=== PATIENT | female | born 1970 | race Caucasian/White ===

== ENCOUNTER 2021-05-02 13:12 | Outpatient (CLI) | payer OTHER, SELFPAY ==
--- NOTE | ~2021-05-02 | MM_ITS ---
EXAMINATION: MM screening [facility] w jan[facility] HISTORY: Screening TECHNIQUE: Craniocaudal and mediolateral oblique 3-D tomosynthesis images were obtained and synthetic 2-D images were generated. CAD analysis was submitted and interpreted. COMPARISON: No prior mammogram is available for comparison at this institution. BREAST PARENCHYMAL COMPOSITION: There are scattered areas of fibroglandular density. FINDINGS: There is no evidence of suspicious mass, calcification, or architectural distortion to sugg est malignancy in either breast. There has been no suspicious interval change. IMPRESSION: 1. No mammographic evidence of malignancy. 2. Recommend routine screening mammography in one year. BI-RADS Category 1: Negative Reviewed, dictated and finalized at location A.
== END 2021-05-02 13:13 | disposition home or self-care (01) ==
LOC: CHSIMG 13:16
PROVIDERS: PCP Family Medicine; Visit Provider Physician Assistant
DX: Z12.31 Encounter for screening mammogram for malignant neoplasm of breast (principal)
CPT/HCPCS: 77063; 77067

== ENCOUNTER 2021-08-21 08:42 | Outpatient (CLI) | payer OTHER, SELFPAY ==
--- NOTE | ~2021-08-21 | US_ITS ---
EXAMINATION: US pelvic complete w TV DATE: 08/21/2021 09:07 INDICATION: Menstrual pain. Bleeding. Comparison:No prior studies for comparison. TECHNIQUE: Multiple transabdominal and endovaginal sonographic images of the pelvis performed. FINDINGS: The uterus measures 11.3 x 4.8 x 5.9 cm. There is a nabothian cyst. The endometrial complex measures 4 mm. The right ovary measures 2.8 x 1.2 x 1.8 cm and the left ovary measures 2.5 x 1.6 x 1.6 cm. There ar e small follicles in each ovary. Normal doppler signal in both ovaries. There is no free fluid in the pelvis. There are no abnormal masses seen on either side. IMPRESSION: 1. Mildly enlarged uterus. Otherwise, unremarkable pelvic ultrasound. Reviewed, dictated and finalized at location A.
== END 2021-08-21 08:43 | disposition home or self-care (01) ==
LOC: CHSIMG 08:43
PROVIDERS: PCP Family Medicine; Visit Provider Physician Assistant
DX: N94.6 Dysmenorrhea, unspecified (principal)
CPT/HCPCS: 76830; 76856

== ENCOUNTER 2022-06-03 12:56 | Outpatient (CLI) | payer OTHER, SELFPAY ==
--- NOTE | ~2022-06-03 | MM_ITS ---
EXAMINATION: MM screening [facility] w janis HISTORY: Screening TECHNIQUE: Craniocaudal and mediolateral oblique 3-D tomosynthesis images were obtained and synthetic 2-D images were generated. CAD analysis was submitted and interpreted. COMPARISON: 05/02/2021 BREAST PARENCHYMAL COMPOSITION: The breasts are heterogeneously dense, which may obscure small masses . FINDINGS: There is no evidence of suspicious mass, calcification, or architectural distortion to sugg est malignancy in either breast. There has been no suspicious interval change. IMPRESSION: 1. No mammographic evidence of malignancy. 2. Recommend routine screening mammography in one year. BI-RADS Category 1: Negative Reviewed, dictated and finalized at location A.
== END 2022-06-03 12:57 | disposition home or self-care (01) ==
LOC: CHSIMG 12:58
PROVIDERS: PCP Physician Assistant; Visit Provider Physician Assistant
DX: Z12.31 Encounter for screening mammogram for malignant neoplasm of breast (principal)
CPT/HCPCS: 77063; 77067

== ENCOUNTER 2022-10-03 09:31 | Outpatient (CLI) | payer OTHER, SELFPAY ==
--- NOTE | ~2022-10-03 | XR_ITS ---
EXAMINATION: XR foot LT min 3V DATE: 10/03/2022 10:04 INDICATION: Left great toe pain. TECHNIQUE: Dorsoplantar, two oblique and lateral views of the left foot were obtained. COMPARISON: None. FINDINGS: Alignment is normal. No fracture. Severe osteoarthritis at the first metatarsophalangeal joint. Moder ate osteoarthritis at the reticulation of the navicular and lateral cuneiform. Mild osteoarthritis at the calcaneocuboid, multiple tarsometatarsal, metatarsophalangeal and interphalangeal joints. Soft t issues are unremarkable. IMPRESSION: 1. 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 Reviewed, dictated and finalized at location B. IMPRESSION: 1. Polyarticular osteoarthritis in the left foot, severe at the first metatarso phalangeal joint.
== END 2022-10-03 09:32 | disposition home or self-care (01) ==
PROVIDERS: PCP Physician Assistant; Visit Provider Physician Assistant
DX: M79.675 Pain in left toe(s) (principal); M15.9 Polyosteoarthritis, unspecified
CPT/HCPCS: 73630

== ENCOUNTER 2023-06-19 14:15 | Outpatient (CLI) | payer OTHER, SELFPAY ==
--- NOTE | ~2023-06-19 | MM_ITS ---
EXAMINATION: MM screening [facility] BI w janis HISTORY: Screening TECHNIQUE: Craniocaudal and mediolateral oblique 3-D tomosynthesis images were obtained and synthetic 2-D images were generated. CAD analysis was submitted and interpreted. COMPARISON: Comparison to multiple prior studies sequentially, with oldest reviewed study dated 01/2021. BREAST PARENCHYMAL COMPOSITION: There are scattered areas of fibroglandular density. FINDINGS: There is no evidence of suspicious mass, calcification, or architectural distortion to sugg est malignancy in either breast. There has been no suspicious interval change. IMPRESSION: 1. No mammographic evidence of malignancy. 2. Recommend routine screening mammography in one year. BI-RADS Category 1: Negative Reviewed, dictated and finalized at location A.
== END 2023-06-19 14:16 | disposition home or self-care (01) ==
LOC: CHSIMG 14:16
PROVIDERS: PCP Physician Assistant; Visit Provider Physician Assistant
DX: Z12.31 Encounter for screening mammogram for malignant neoplasm of breast (principal)
CPT/HCPCS: 77063; 77067

== ENCOUNTER 2024-06-21 12:10 | Outpatient (CLI) | payer OTHER, SELFPAY ==
--- NOTE | ~2024-06-21 | MM_ITS ---
EXAMINATION: MM screening [facility] w jan[facility] HISTORY: Screening TECHNIQUE: Craniocaudal and mediolateral oblique 3-D tomosynthesis images were obtained and synthetic 2-D images were generated. CAD analysis was submitted and interpreted. COMPARISON: Comparison to multiple prior studies sequentially, with oldest reviewed study dated 01/2021. BREAST PARENCHYMAL COMPOSITION: Dense: The breasts are heterogeneously dense, which may obscure small masses FINDINGS: There is no evidence of suspicious mass, calcification, or architectural distortion to sugg est malignancy in either breast. There has been no suspicious interval change. IMPRESSION: 1. No mammographic evidence of malignancy. 2. Recommend routine screening mammography in one year. BI-RADS Category 1: Negative Reviewed, dictated and finalized at location B.
== END 2024-06-21 12:11 | disposition home or self-care (01) ==
PROVIDERS: PCP Physician Assistant; Visit Provider Physician Assistant
DX: Z12.31 Encounter for screening mammogram for malignant neoplasm of breast (principal)
CPT/HCPCS: 77063; 77067

== ENCOUNTER 2025-06-23 13:17 | Outpatient (CLI) | payer OTHER, SELFPAY ==
--- NOTE | ~2025-06-23 | MM_ITS ---
EXAMINATION: MM screening urszula BI w janis HISTORY: Screening TECHNIQUE: Craniocaudal and mediolateral oblique 3-D tomosynthesis images were obtained and synthetic 2-D images were generated. CAD analysis was submitted and interpreted. COMPARISON: Comparison to multiple prior studies sequentially, with oldest reviewed study dated 01/2021. BREAST PARENCHYMAL COMPOSITION: Dense: The breasts are heterogeneously dense, which may obscure small masses FINDINGS: There is no evidence of suspicious mass, calcification, or architectural distortion to sugg est malignancy in either breast. There has been no suspicious interval change. IMPRESSION: 1. No mammographic evidence of malignancy. 2. Recommend routine screening mammography in one year. BI-RADS Category 1: Negative Reviewed, dictated and finalized at location A.
--- OUTSIDE RECORDS SUMMARY | 2025-06-23 13:21 | XMS_ITS | Clinical Summary ---
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 06/17/2019 Active oxybutynin 5 MG tablet Take 1 tablet (5 mg total) by mouth daily. 06/18/2019 Active Multiple Vitamins-Mineral s (MULTIVITAMIN ADULT OR) Take 1 tablet by mouth daily. Active meloxicam (MOBIC) 15 MG tablet 05/17/2024 Active metFORMIN (GLUCOPHAGE) 1000 MG tablet 05/17/2024 Acti ve omeprazole (PRILOSEC) 40 MG capsule 05/17/2024 Active amitriptyline (ELAVIL) 25 MG tablet Take 1 tablet (25 mg total) by mouth. 05/17/2024 Active levothyroxine (SYNTHROID) 88 MCG tablet Take 1 tablet (88 mcg total) by mouth every morning. 05/17/2024 Active Active Problems Problem Noted Date Diagnosed Date Umbilical hernia without obstruction or gangrene 06/08/2024 Chondrocalcinosis of right knee 07/14/2019 Family History Medical History Relation Comments Diabetes Father Seizures Father Stroke Father Relation Status Comments Father Alive Mother Alive Social History Tobacco Use Types Packs/Day Years Used Date Smoking Tobacco: Never Smokeless Tobacco: Never Tobacco Cessation:Counseling Given: Not Answered Alcohol Use Standard Drinks/Week Comments No 0 (1 standard drink = 0.6 oz pur e alcohol) AUDIT-C Answer Date Recorded Frequency of Alcohol Consumption Never 07/14/2019 Average Number of Drinks Not on file 019 Frequency of Binge Drinking Not on file 06/30 Comments No Sex and Gender Information Value Date Recorded Sex Assigned at Not on file Legal Sex Female 10:26 PM CDT Gender Identity Not on file Sexual Orientation Not on file Last Filed Vital Signs Vital Sign Reading Time Taken Comments Blood Pressure 113/72 06/29/2024 9:17 AM CDT Pulse 82 06/29/2024 9:17 AM CDT Temperature 35.8 C (96.4 F) 06/16/2024 10:25 AM CDT Respiratory Rate 14 06/29/2024 9:17 AM CDT Oxygen Saturation 99% 06/16/2024 10:25 AM CDT Inhaled Oxygen Concentration - - Weight 55.2 kg (121 lb 9.6 oz) 06/29/2024 9:17 A M CDT Height 160 cm (5' 3) 06/29/2024 9:17 AM CDT Body Mass Index 21.54 06/29/2024 9:17 AM CDT Plan of Treatment Health Maintenance Due Date Last Done Comments Cervical Cancer Screening Pap Smear (Age 30 to 64) Every 3 Years 1972 Colorectal Cancer Screening Colonoscopy (10 Years) 1972 Annual Physical 1975 Hepatitis C 1990 Hepatitis B Vaccines (1 of 3 - 19+ 3-dose series) 1991 Cervical Cancer Screening Pap with HPV Testing (Age 30 to 64) Every 5 Years 2002 Cervical Cancer Screening with HPV 2002 Mammogram Screening 2012 Pneumococcal Vaccine: 50+ Years (1 of 1 - PCV) 2022 Zoster Vaccines (1 of 2) 2022 COVID-19 Vaccine (4 - season) 2024 06/12/2022, 01/11/2022, 12/14/2021 PHQ-2 (Physician [place]) 11/30/2024 DTaP, Tdap and Td Vaccines (6 - Td or Tdap) 08/05/2033 08/05/2023, 03/30/1980, 09/21/1974, Additional history exists Meningococcal B Vaccine Aged Out No l onger eligible based on patient's age to complete this topic Meningococcal Vaccine Aged Out No deepa frandy eligible based on patient's age to complete this topic RSV Immunizations Under 20 Months Aged Out No longer eligible based on patient's age to complete this topic Insurance [facility] Care Teams Cutting Machine Tender Helper Relationship Specialty Start Date End Date Jamari Holguin MD [address] [place] [phone] PCP - General FAMILY PRACTICE 07/07/19
--- OUTSIDE RECORDS SUMMARY | 2025-06-23 13:22 | XMS_ITS | Data Portability ---
Author Organization [facility], [address] [facility] ([place]) Address [address] [place] [address] Care Team Providers Care Genetic Counselor Name Role Phone MAGGIE ABARCA Primary Care Provider YVES VILLELA Referring Provider Assessment Encounter Date Assessment Date Assessment LastModified by Organization Details LastModified Time 09/02/2024 09/02/2024 HISTORY OF PRESENT ILLNESS: The patient presents for evaluation of right elbow pain after an injury that happened on 08/18/24 at work. She was lifting boxes when she hit her funny bone . Since then she has had pain all throughout the elbow joint. She does have associated numbness of the thumb but no other numbness and tingling. Her pain is 5/10 in intensity. She has been resting and taking Aleve. Her pain is worsened by bending her arm and lifting heavy objects. The pain is sharp and aching. It does radiate down her arm at times. She is right hand dominant. She has never had a prior injury or surgery to the right elbow. She took oral steroids on 08/24. That helped her symptoms minimally but then they returned once the steroids were discontinued. PHYSICAL EXAMINATION: CONST: No acute distress. HENT: Oral mucosa pink and moist. RESP: Breathing appears normal. No use of accessory muscles. PSYCH: Stable mood and affect. NEURO: No speech difficulty. MSK: 2+ palpable radial pulse. Sensation intact to upper extremity dermatomes. Motor intact to radial, medial, ulnar distributions. Upper extremity on the right: The patient has pain with extension of the right elbow. She lacks about 5 degrees of extension compared to the left. She does have pain with varus and valgus stress testing of the elbow but no laxity. She has slight pain with flexion. No pain with pronation and supination. Mild tenderness to palpation near the radial head. No edema or ecchymosis. No tenderness to palpable at the tip of the olecranon. Carpal tunnel compression test is positive but Tinel s is negative. Full active range of motion of the shoulder and wrist. DIAGNOSTIC DATA: Imaging of the right elbow was obtained and demonstrates no definite fracture. Maintained joint space. These images were independently reviewed. Please see radiologist's report for full details. ASSESSMENT: Right elbow injury. PLAN: The patient is having right elbow pain after an injury but there are no significant findings on the x-ray. I would like to give her a sling to wear as needed. She was given a work note recommending a 5 pound weight restriction to the right upper extremity and may need to wear her sling. She will follow up in clinic in 3 weeks. Hopefully at that time we can release to her work. She also an EMG scheduled with Dr. Perrin at some point but another provider. The patient verbalized an understanding. All questions were answered. [email or web address] Not available 09/02/2024 14:45:56 09/20/2024 09/20/2024 History: Linda returns for followup of her right elbow. She saw Venus at the last visit. She injured it on 08/18/2024. 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 She says she just bumped it. She says that it did not hurt too bad initially but over the next 24 to 48 hours it did increase in pain. She cannot straighten her elbow out all the way. It is still swollen. The pain is a 4/10. Physical Examination: She has about 5 to 155 degrees range of motion of the right elbow compared to 3 degrees hypertension, 155 degrees of flexion of the left elbow. There is pain along the medial epicondyle, as well as the ulnar collateral ligament of the right elbow, negative left elbow. Positive cubital tunnel and Tinel's test on the right elbow, negative left elbow. X-rays of the right elbow were independently reviewed from [facility] and show no significant abnormalities. Assessment: 1. Right elbow injury status post work injury, possible ulnar collateral ligament strain versus intraarticular derangement. 2. Possible right cubital tunnel. Plan: Clinical findings were discussed with the patient. I recommended conservative management of the right elbow with physical therapy. I also recommended continued 5 pound working lifting restriction. I also recommended an MRI of the right elbow. She will follow up after the MRI of the right elbow, as well as the nerve test. [email or web address] Not available 09/20/2024 13:40:55 10/11/2024 10/11/2024 History: Linda returns for follow-up. She injured her right elbow on August 17. 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 She bumped it. It did not hurt too badly for the first 24 to 48 hours, but the pain did increase. She has been doing physical therapy. She has noted some improvement. She did have a nerve test with Dr. Perrin recently, which she was told was normal. She feels like her range of motion has improved from the last visit. Physical Examination: She has 3 degrees of hyperextension and 155 degrees of flexion of the bilateral elbows, which is much improved. She had no pain along the medial epicondyle. She had some mild lateral epicondyle tenderness of the right elbow. Negative cubital tunnel Tinel s test on the right elbow today. X-rays of the right elbow, MRI, and EMG were independently reviewed from [facility] and show no significant abnormalities besides a contusion of the right elbow as well as some mild tennis elbow as well as some mild arthritis of the medial trochlea. Assessment: 1. Right elbow contusion status post work-related injury. 2. Right mild tennis elbow. Plan: Clinical findings were discussed with the patient. She can return to work full duty without restrictions. She can continue her physical therapy. She will follow up with us again in approximately 2 months for maximum medical improvement. [email or web address] Not available 10/11/2024 16:43:43 Plan of Treatment Reminders Order Date Submit Date Provider Last Modified By Organization Details Last Modified Time Details Appointments None record ed. Lab None record ed. Referral None record ed. Procedures None record ed. Surgeries None record ed. Imaging None record ed. Medication Orders None record ed. Patient TargetsNo targets recorded. Patient InstructionsNo instructions recorded. Reason for Referral None Reported. Results Created Date Observation Date Name Description Value Unit Range Abnormal Flag Note LastModifiedBy Organization Detail LastModifiedTime 10/10/20 24 elect romyo gram + nerve condu ction study No observ ation record ed. BARCODE Not Available 2023 13:27:13 01/06/20 25 XR, elbow , 3 or more view No observ ation record ed. odeets Not Available 2024 09:29:45 01/10/20 25 XR, elbow , 3 or more view No observ ation record ed. [email or web address] [facility] (Radiology) [address], [place], [address], 01/10/2025 10:44:37 01/31/20 25 09/29/2024 MRI, elbow , w/o contr ast No observ ation record ed. [email or web address] [facility] (Radiology) [address] , [place], [address], 01/30/2025 16:33:18 02/07/20 25 09/28/2024 MRI, elbow , w/o contr ast No observ ation record ed. GOVIND [facility] (Radiology) [address] , [place], [address], 02/06/2025 13:13:15 Result Notes None recorded. Problems Name Problem SNOMED Code Status Onset Date Resolution Date Notes Provider Name and Address Organization Details Recorded Time Pain of right elbow joint [id number] Active 2023 Simin Chilel [facility] 09:56:14 Problem Notes None recorded. Procedures Surgical History Date Name Laterality Status Provider Name and Address Organization Details Recorded Time 10/06/20 24 SC EMG Procedure completed Aleida Richard [facility] 10/13/2024 11:23:33 delivery completed Not Available Health Note 08/31/2024 22:22:03 Colonoscopy with biopsy completed Not Available Health Note 08/31/2024 22:22:03 ligation of fallopian tube completed Simin Chilel [facility] 09/02/2024 09:59:17 Imaging Results None recorded. Procedure Notes None recorded. Medical Equipment None Reported. Allergies No known drug allergies Medications Name Sig Start Date Stop Date Status Note LastModified by Organization Details LastModified Time latanoprost 0.005 % eye drops active Not Available Not Available Not Available azithromycin 250 mg tablet 09/02 completed Not Available Not Available Not Available hydrocodone 5 mg-acetaminophen 325 mg tablet active Not Available Not Availabl e Not Available meloxicam 15 mg tablet active Not Available Not Available Not Available omeprazole 40 mg capsule,delayed release active Not Available Not Available Not Available hydrocortisone 2.5 % topical cream with perineal applicator active Not Available Not Available N ot Available levothyroxine 88 mcg tablet active Not Available Not Available N ot Available amitriptyline 25 mg tablet active Not Available Not Available No t Available timolol maleate 0.25 % eye drops active Not Available Not Avail able Not Available metformin 1,000 mg tablet active Not Available Not Available No t Available montelukast 10 mg tablet active Not Available Not Available No t Available oxybutynin chloride 5 mg tablet active Not Available Not Available Not Available fluticasone propionate 50 mcg/actuation nasal spray,suspension active Not Available Not Avail able Not Available naloxone 4 mg/actuation nasal spray active Not Available Not Available Not Available Vitals Date Recorded Body height Body mass index (BMI) Body weight Heart rate Oxygen saturation Oxygen saturation in Arterial blood by Pulse oximetry Systolic And Diastolic Provider Name and Address Organization Details Last Updated DateTime 4 160.02 cm 22.1 kg/m2 68930.0 5 g 77 /min 100 % 100 % 123/81 mm[Hg] Aleida Cedillo [facility] 4 10:03:21 Date Recorded Body height Body mass index (BMI) Body weight Heart rate Oxygen saturation Oxygen saturation in Arterial blood by Pulse oximetry Systolic And Diastolic Provider Name and Address Organization Details Last Updated DateTime 4 160.02 cm 21.3 kg/m2 60504.0 8 g 67 /min 100 % 100 % 116/79 mm[Hg] Diamond Diaz [facility] 4 11:15:23 Date Recorded Body height Body mass index (BMI) Body weight Heart rate Oxygen saturation Oxygen saturation in Arterial blood by Pulse oximetry Systolic And Diastolic Provider Name and Address Organization Details Last Updated DateTime 160.02 cm 21.3 kg/m2 75308.0 8 g 78 /min 99 % 99 % 118/81 mm[Hg] Diamond Diaz [facility] 4 10:08:04 Social History Question Answer Notes LastModified by Organizat ion Details LastModified Time Tobacco Smoking Status Former Smoker Not Available Health Note 08/31/2024 22:22:03 Do You Have An Advance Directive? No [email or web address] Information not available 08/31/2024 What Is Your Level Of Caffeine Consumption? Heavy [email or web address] Information not available 08/31/2024 How Many Times Per Week Do You Exercise? Less Than 1 Time Per Week [email or web address] Information not available 08/31/2024 E-cigarettes Or Vaporization Device? Uses Nicotine Containing Device [email or web address] Information not available 08/31/2024 When Did You Quit Smoking? 10 Years Ago [email or web address] Information not available 08/31/2024 Do You Have A Medical Power Of Health Services Director? No [email or web address] Information not available 08/31/2024 What Was The Date Of Your Most Recent Tobacco Screening? 09/02/2024 [email or web address] Information not available 08/31/2024 What Is Your Relationship Status? Single [email or web address] Information not available 08/31/2024 Sex: Unknown Functional Status Question Answer Note LastModified by [employer] ion Details LastModified Time Do you use any illicit or recreational drugs? No [email or web address] Information not available 08/31/2024 What is your level of alcohol consumption? None [email or web address] Information not available 08/31/2024 Are you currently employed? 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 Moderate [email or web address] Information not available 08/31/2024 Mental Status None recorded. Family History Relationship Description Onset Age of this Age Resolved Age Notes LastModified by Organization Details LastModified Time Mother Arthritis [email or web address] Not available 08/31/2024 22:22:02 Mother Diabetes mellitus [email or web address] Not available 2023 22:22:02 Mother Hypertensive disorder [email or web address] Not available 2023 22:22:02 Father Diabetes mellitus [email or web address] Not available 2023 22:22:02 Father Heart disease [email or web address] Not available 2023 22:22:02 Father Hypertensive disorder [email or web address] Not available 2023 22:22:02 Father Hypercholest erolemia [email or web address] Not available 2023 22:22:02 Father Cerebrovascu lar accident [email or web address] Not available 12/2023 22:22:02 Medical History Condition Response Diabetes Y Anxiety Disorder N Bleeding Disorder N Attention-deficit Hyperactivity Disorder N High Blood Pressure N Arthritis Y Hyperlipidemia N Cancer N Stroke N Thyroid Problems Y Asthma N Depression N COPD N Anemia N Seizures N Heart Disease N Fibromyalgia N Osteoporosis N Kidney Disease N Gynecological HistoryNo gynecological history recorded. Obstetrics History GPAL:G 0 P 0 0 0 0 Past Encounters Encounter ID Performer Location Encounter Start Date Encounter Closed Date Diagnosis/Indication Diagnosis SNOMED-CT Code Diagnosis ICD10 Code Diagnosis Note [id number] Venus Delgado PA-C [facility] ([place] [place] [address] 09/02/2024 09:47:39 09/02/2024 18:55:30 Pain of right elbow joint 2184981016 9440214 M25.521 [id number] Marcel Garay MD [facility] ([place] [place] [address] 09/20/2024 11:07:25 09/20/2024 11:59:42 Pain of right elbow joint 6949115625 [id number] M25.521 [id number] Ana Perrin MD [facility] ([place]) [place] [address] 10/06/2024 13:02:53 10/07/2024 09:04:08 Pain of right elbow joint 7681200701 [id number] M25.521 [id number] Marcel Garay MD [facility] ([place]) [place] [address] 10/11/2024 09:21:24 10/11/2024 10:29:17 Pain of right elbow joint 4192599414 7824883 M25.521 Health Concerns Section Related Observation LastModified by Organization Detai ls LastModified Time None Recorded Concern Status LastModified by Organization Details LastModified Time None Recorded Advance Directives Directive N: Payers Insurance Date Sequence Insurance Name Policy Number Policy Painting Covered Member ID Painting Member ID Guarantor Name 10/08/2024 1 [facility] [id number] Linda Israel [id number] Linda Israel Notes Date Note Type Note Provider Name and Address Organization Details Recorded Time 4 text/html Linda Beyerutechar a 54 year oldfemalepresenting for care. Venus Delgado PA-C [address] [place] [address], [phone], [facility] 09/05/2024 10:30:19 4 text/html Linda Beyerutechar a 54 year oldfemalepresenting for care. Marcel Garay MD [address] [place] [address], [phone], [facility] 09/20/2024 17:47:04 4 text/html Linda Tamaryara a 54 year oldfemalepresenting for care. Marcel Garay MD [address] [place] [address], [phone], [facility] 10/12/2024 08:56:48 OBGyn Episode No OBEpisode recorded.
== END 2025-06-23 13:18 | disposition home or self-care (01) ==
LOC: CHSIMG 13:18
PROVIDERS: PCP Physician Assistant; Visit Provider Physician Assistant
DX: Z12.31 Encounter for screening mammogram for malignant neoplasm of breast (principal)
CPT/HCPCS: 77063; 77067